=== PATIENT | female | born 1995 | race Hispanic/Latino ===

== ENCOUNTER 2019-02-11 14:20 | Emergency (ER) | payer MEDICAID ==
[2019-02-11 15:38] LABS: APPEARANCE,URINE Cloudy (CLEAR); BILIRUBIN,URINE Negative (NEGATIVE); COLOR,URINE Yellow (YELLOW); GLUCOSE, URINE (UA) Negative (NEGATIVE); KETONES,URINE Trace mg/dL (NEGATIVE); LEUKOCYTE ESTERASE ,URINE Small (NEGATIVE); NITRATE,URINE Negative (NEGATIVE); OCCULT BLOOD,URINE Negative (NEGATIVE); PH,URINE 5.5 (5.0-8.0); PROTEIN,URINE Negative (NEGATIVE)
[2019-02-11 15:45] LABS: BACTERIA,URINE Few /HPF (None Seen); MUCUS,URINE Few LPF (None Seen); RBC,URINE 0-1 /HPF (0-1); SQUAMOUS EPITHELIAL CELL,UR Few /HPF (0-2); TRANSITIONAL EPI CELLS,URINE Few /HPF (None Seen)
[2019-02-11] MEDS ORDERED: SODIUM CHLORIDE 0.9% 1000ML 1,000 ML IV ONE (15:57)
[2019-02-11 16:07] LABS: BASOPHILS % (AUTO) 0.4 % (0.0-5.0); EOSINOPHILS % (AUTO) 1.8 % (0.0-8.0); HEMATOCRIT 39.1 % (36-48); LYMPHOCYTES % (AUTO) 13.9 % (21.0-51.0); MEAN CORPUSCULAR HEMOGLOBIN 29.9 pg (27.0-33.0); MEAN CORPUSCULAR HGB CONC 34.4 g/dL (32.0-36.0); MONOCYTES % (AUTO) 5.8 % (3.0-13.0); NEUTROPHILS % (AUTO) 78.1 % (40.0-77.0); PLATELET COUNT (AUTO) 244 K/uL (130-400); RED BLOOD CELL COUNT(AUTO) 4.49 MIL/uL (4.00-5.50); RED CELL DISTRIBUTION WIDTH 13.4 % (11.0-15.5); WHITE BLOOD COUNT (AUTO) 13.7 K/uL (4.8-10.8)
== END 2019-02-11 17:59 | disposition home or self-care (01) ==
LOC: EDH 14:20
DX: O20.0 Threatened abortion (principal); O21.8 Other vomiting complicating pregnancy; Z3A.10 10 weeks gestation of pregnancy
CPT/HCPCS: 36415; 76801; 81001; 84702; 85025; 96360; 96361; 99285; J7030

== ENCOUNTER 2019-02-23 16:45 | Observation (INO) | payer MEDICAID ==
[~2019-02-23] VITALS: Ht 172.7 cm; Wt 84.4 kg
[2019-02-23 17:15] VITALS: BP 115/53
[2019-02-23] MEDS ORDERED: PROMETHAZINE HCL 25 MG/ML 1ML AMPULE IM PRN (17:15)
[2019-02-23] MEDS ORDERED: PNV1TABL17 PO (17:58)
[2019-02-23 17:59] LABS: HEMATOCRIT 38.6 % (36-48); MEAN CORPUSCULAR HEMOGLOBIN 29.7 pg (27.0-33.0); MEAN CORPUSCULAR HGB CONC 34.9 g/dL (32.0-36.0); PLATELET COUNT (AUTO) 369 K/uL (130-400); RED BLOOD CELL COUNT(AUTO) 4.54 MIL/uL (4.00-5.50); RED CELL DISTRIBUTION WIDTH 12.8 % (11.0-15.5)
[2019-02-23 18:00] LABS: APPEARANCE,URINE Cloudy (CLEAR); BILIRUBIN,URINE Negative (NEGATIVE); COLOR,URINE Yellow (YELLOW); GLUCOSE, URINE (UA) Negative (NEGATIVE); KETONES,URINE Negative (NEGATIVE); LEUKOCYTE ESTERASE ,URINE Trace (NEGATIVE); NITRATE,URINE Negative (NEGATIVE); OCCULT BLOOD,URINE Negative (NEGATIVE); PH,URINE 6.5 (5.0-8.0); PROTEIN,URINE Negative (NEGATIVE); UROBILINOGEN,URINE 0.2 mg/dL (0.2-1.0)
[2019-02-23 18:07] LABS: BACTERIA,URINE Few /HPF (None Seen); RBC,URINE 0-1 /HPF (0-1)
[2019-02-23 18:08] LABS: SQUAMOUS EPITHELIAL CELL,UR Few /HPF (0-2)
[2019-02-23 18:11] LABS: ALBUMIN 3.5 g/dL (3.5-5.0); BILIRUBIN,TOTAL 0.4 mg/dL (0.2-1.0); CREATININE 0.5 mg/dL (0.5-1.5); POTASSIUM 3.5 mmol/L (3.5-5.1); TOTAL PROTEIN, SERUM 7.6 g/dL (6.0-8.3)
[2019-02-23 19:24] VITALS: BP 122/61
[2019-02-23] MEDS: FAMOTIDINE/PF 20 MG/2 ML VIAL IV SCH (21:12)
[2019-02-23 23:45] VITALS: BP 118/58
[2019-02-24] MEDS: LACTATED RINGERS 1000ML 1,000 ML IV SCH ×4 (01:04→16:52)
[2019-02-24 04:38] VITALS: BP 115/64
[2019-02-24 07:25] VITALS: BP 113/62
[2019-02-24] MEDS: FAMOTIDINE/PF 20 MG/2 ML VIAL IV SCH ×2 (08:37→20:35)
[2019-02-24 11:14] VITALS: BP 123/64
--- NOTE | 2019-02-24 13:00 | NUR ---
DIET PT TOLERATED CLEAR LIQUID DIET FOR LUNCH. NO NAUSEA OR VOMITING
[2019-02-24 16:33] VITALS: BP 118/65
[2019-02-24 19:24] VITALS: BP 121/60
[2019-02-24 23:05] VITALS: BP 104/56
[2019-02-25] MEDS: LACTATED RINGERS 1000ML 1,000 ML IV SCH ×3 (01:10→09:04)
[2019-02-25 03:32] VITALS: BP 123/77
[2019-02-25 07:40] VITALS: BP 107/60
[2019-02-25] MEDS: FAMOTIDINE/PF 20 MG/2 ML VIAL IV SCH (08:51)
[2019-02-25] MEDS ORDERED: DiphenhydrAMINE HCL 50 MG/ML VIAL IV SCH (10:15)
[2019-02-25] MEDS ORDERED: CEFTRIAXONE SODIUM 1 GM IVP SCH (10:15)
[2019-02-25 11:47] VITALS: BP 123/61
== END 2019-02-25 13:25 | disposition home or self-care (01) ==
LOC: INTOOBSV 16:45 → WSH 16:45
PROVIDERS: ADMIT Obstetrics & Gynecology; ATTEND Obstetrics & Gynecology
DX: O21.0 Mild hyperemesis gravidarum (principal); O09.891 Supervision of other high risk pregnancies, first trimester; O99.341 Other mental disorders complicating pregnancy, first trimester; F31.9 Bipolar disorder, unspecified; Z79.899 Other long term (current) drug therapy
CPT/HCPCS: 36415; 80053; 81001; 85027; 96361 ×2; 96374; 96375; 96376 ×2; G0378 ×44; J0696; J3490 ×4; J7120 ×3

== ENCOUNTER 2019-08-11 15:54 | Inpatient (IN) | payer MEDICAID ==
[~2019-08-11] VITALS: Ht 172.7 cm; Wt 109.3 kg
[~2019-08-11 15:54] MED LIST: PNV1TABL17 PO
[2019-08-11] MEDS ORDERED: OXYTOCIN-LR 20 UNITS/1000 ML 1,000 ML IV SCH (17:00)
[2019-08-11] MEDS ORDERED: CELESTONE SOLUSPAN 6 MG/ML 5ML VIAL IM SCH (17:00)
[2019-08-11 17:15] LABS: HEMATOCRIT 36.3 % (36-48); MEAN CORPUSCULAR HEMOGLOBIN 25.6 pg (27.0-33.0); PLATELET COUNT (AUTO) 278 K/uL (130-400); RED BLOOD CELL COUNT(AUTO) 4.54 MIL/uL (4.00-5.50); RED CELL DISTRIBUTION WIDTH 13.7 % (11.0-15.5); WHITE BLOOD COUNT (AUTO) 13.1 K/uL (4.8-10.8)
[2019-08-11 19:14] LABS: APPEARANCE,URINE Clear (CLEAR); BILIRUBIN,URINE Negative (NEGATIVE); COLOR,URINE Yellow (YELLOW); GLUCOSE, URINE (UA) Negative (NEGATIVE); KETONES,URINE Negative (NEGATIVE); LEUKOCYTE ESTERASE ,URINE Negative (NEGATIVE); NITRATE,URINE Negative (NEGATIVE); OCCULT BLOOD,URINE Negative (NEGATIVE); PH,URINE 7.5 (5.0-8.0); PROTEIN,URINE Negative (NEGATIVE)
[2019-08-11 19:21] LABS: AMPHET/METH SCREEN,URINE NEGATIVE (NEGATIVE); BARBITURATE SCREEN, URINE NEGATIVE (NEGATIVE); BENZODIAZEPINES SCREEN,URINE NEGATIVE (NEGATIVE); CANNABINOID SCREEN,URINE NEGATIVE (NEGATIVE); COCAINE SCREEN,URINE NEGATIVE (NEGATIVE); OPIATE SCREEN,URINE NEGATIVE (NEGATIVE); PHENCYCLIDINE SCREEN,URINE NEGATIVE (NEGATIVE)
[2019-08-11] MEDS ORDERED: ACETAMINOPHEN EXTRA STRENGTH 500 MG TABLET PO PRN (22:00)
[2019-08-11] MEDS: CLINDAMYCIN 600 MG/D5% WATER 50 ML IV SCH (23:46)
[2019-08-12] MEDS: LACTATED RINGERS 1000ML 1,000 ML IV PRN (00:56)
[2019-08-12] MEDS: CLINDAMYCIN 600 MG/D5% WATER 50 ML IV SCH ×3 (05:45→18:00)
[2019-08-13] MEDS: CLINDAMYCIN 600 MG/D5% WATER 50 ML IV SCH ×4 (00:22→17:49)
[2019-08-13 07:13] LABS: HEPATITIS Bs ANTIGEN SCREEN P Negative (Negative)
[2019-08-13] MEDS: LACTATED RINGERS 1000ML 1,000 ML IV PRN (12:35)
[2019-08-14] MEDS: LACTATED RINGERS 1000ML 1,000 ML IV PRN ×2 (04:59→23:57)
[2019-08-14] MEDS: CLINDAMYCIN 600 MG/D5% WATER 50 ML IV SCH ×5 (05:46→23:56)
[2019-08-14 07:30] LABS: BASOPHILS % (AUTO) 0.2 % (0.0-5.0); EOSINOPHILS % (AUTO) 0.5 % (0.0-8.0); HEMATOCRIT 33.7 % (36-48); LYMPHOCYTES % (AUTO) 20.6 % (21.0-51.0); MEAN CORPUSCULAR HEMOGLOBIN 25.7 pg (27.0-33.0); MEAN CORPUSCULAR HGB CONC 31.5 g/dL (32.0-36.0); MEAN CORPUSCULAR VOLUME 81.8 fL (79-99); MONOCYTES % (AUTO) 8.2 % (3.0-13.0); NEUTROPHILS % (AUTO) 69.2 % (40.0-77.0); PLATELET COUNT (AUTO) 251 K/uL (130-400); RED BLOOD CELL COUNT(AUTO) 4.12 MIL/uL (4.00-5.50); RED CELL DISTRIBUTION WIDTH 14.1 % (11.0-15.5); WHITE BLOOD COUNT (AUTO) 12.5 K/uL (4.8-10.8)
[2019-08-15] MEDS ORDERED: PROMETHAZINE HCL 25 MG/ML 1ML AMPULE IM PRN
[2019-08-15] MEDS ORDERED: MEPERIDINE-PF 50 MG/ML SYG ONE (02:38)
[2019-08-15] MEDS ORDERED: MEPERIDINE-PF 50 MG/ML SYG IVP PRN (02:45)
[2019-08-15] MEDS ORDERED: OXYTOCIN-LR 20 UNITS/1000 ML 1,000 ML IV ONE (03:32)
[2019-08-15] MEDS ORDERED: OXYTOCIN-LR 20 UNITS/1000 ML 1,000 ML IV SCH (03:45)
[2019-08-15] MEDS ORDERED: LIDOCAINE HCL 1% 20 ML VIAL ONE (04:45)
[2019-08-15] MEDS: OXYTOCIN-LR 20 UNITS/1000 ML 1,000 ML IV SCH (04:51)
[2019-08-15] MEDS ORDERED: LANOLIN 30GM OINTMENT TP PRN (05:15)
[2019-08-15] MEDS ORDERED: ACETAMINOPHEN-CODEINE 300/30MG TAB PO PRN (05:15)
[2019-08-15] MEDS ORDERED: MEASLES/MUMPS/RUBELLA VACCINE, LIVE 0.5 ML/VIAL SQ PRN (05:15)
[2019-08-15] MEDS ORDERED: BENZOCAINE/LANOLIN/ALOE VERA 60 ML AEROSOL TP PRN (05:15)
[2019-08-15] MEDS ORDERED: ACETAMINOPHEN 325 MG TAB PO PRN (05:15)
[2019-08-15] MEDS ORDERED: WITCH HAZEL 1 PAD TP PRN (05:15)
[2019-08-15] MEDS ORDERED: DIPH,PERTUSS(ACELL),TET VAC/PF 0.5 ML VIAL IM PRN (05:15)
--- NOTE | 2019-08-15 06:40 | NUR ---
Pitocin 20 units in LR infusing@125ml/hr via pump Addendum: 08/15/19 at 0640 by WALTER IVAN RN RN Amended: Links added.
[2019-08-15 07:17] VITALS: BP 115/55
[2019-08-15] MEDS: DOCUSATE SODIUM 100 MG CAP PO SCH ×2 (08:15→21:14)
[2019-08-15] MEDS: IBUPROFEN 600 MG TABLET PO PRN ×2 (08:16→16:26)
[2019-08-15] MEDS ORDERED: PNV#1CAP5 PO (12:29)
--- NOTE | 2019-08-15 12:30 | NUR ---
DR. CAIN CALLED RE PATIENT STATUS. DR. CAIN WAS MADE AWARE OF PATIENT BEING STABLE AN D BABY BEING A BOARDER BABY. INFORMED DR. CAIN OF PATIENT NOT BEING DISCHARGED UNTIL MAYBE SATURDAY. INDICATED PATIENT OKAY FOR DISCHARGE IF BABY IS DISCHARGED.
[2019-08-15 12:55] VITALS: BP 126/67
[2019-08-15 16:20] VITALS: BP 104/61
--- NOTE | 2019-08-15 17:00 | NUR ---
PATIENT HAD PIV CONVERTED TO SALINE LOCK AND WAS FLUSHED WITH 5CC NS. PATIENT WANTED TO TAKE SHOWER.
--- NOTE | 2019-08-15 19:15 | NUR ---
REPORT GIVEN TO MELITON PEREZ AND PATIENT CARE TRANSFERED AT THIS TIME.
[2019-08-15 19:50] VITALS: BP 93/56
[2019-08-15 23:33] VITALS: BP 110/75
[2019-08-16 03:36] VITALS: BP 120/76
[2019-08-16] MEDS: OXYTOCIN-LR 20 UNITS/1000 ML 1,000 ML IV SCH (05:15)
[2019-08-16] MEDS: CLINDAMYCIN 600 MG/D5% WATER 50 ML IV SCH ×2 (06:00)
[2019-08-16 06:44] LABS: HEMATOCRIT 39.4 % (36-48); MEAN CORPUSCULAR HEMOGLOBIN 25.5 pg (27.0-33.0); MEAN CORPUSCULAR HGB CONC 31.5 g/dL (32.0-36.0); MEAN CORPUSCULAR VOLUME 81.1 fL (79-99); PLATELET COUNT (AUTO) 293 K/uL (130-400); RED BLOOD CELL COUNT(AUTO) 4.86 MIL/uL (4.00-5.50); RED CELL DISTRIBUTION WIDTH 14.3 % (11.0-15.5); WHITE BLOOD COUNT (AUTO) 16.7 K/uL (4.8-10.8)
[2019-08-16 07:22] VITALS: BP 126/63
--- NOTE | 2019-08-16 08:10 | NUR ---
ASSESSEMENT DONE AND PATIENT STATES HAVING PAIN OF 2. WAS MEDICATED WITH MOTRIN FOR MILD PAIN. SALINE LOCK SITE WNL.
[2019-08-16] MEDS: DOCUSATE SODIUM 100 MG CAP PO SCH (08:13)
[2019-08-16] MEDS: IBUPROFEN 600 MG TABLET PO PRN (08:14)
[2019-08-16 10:57] VITALS: BP 113/58
--- NOTE | 2019-08-16 12:00 | NUR ---
DR. DEVONTE CAIN ROUNDED AND DISCHARGED PATIENT TO HOME. PATIENT VERBALIZED BABY WILL BE STAYING FOR A FEW MORE DAYS.
--- NOTE | 2019-08-16 15:00 | NUR ---
PATIENT WENT TO N TO VISIT WITH BABY.
--- NOTE | 2019-08-16 16:00 | NUR ---
PATIENT WAS GIVEN DISCHARGE INSTRUCTIONS AND INSTRUCTED PATIENT TO TAKEN MOTRIN OVER THE COUNTER NEEDED FOR PAIN. PATIENT DISCHARGE INSTRUCTIONS GIVEN TO PATIENT AND INSTRUCTED TO TAKE MOTRIN OVER THE COUNTER NEEDED FOR PAIN. VERBALIZED UNDERSTANDING INSTRUCTIONS GIVEN. SALINE LOCK REMOVED FOR DISCHARGE.
[2019-08-16 16:03] VITALS: BP 126/76
--- NOTE | 2019-08-16 16:30 | NUR ---
PATIENT WAS TAKEN VIA W/C TO FAMILY VEHICLE AND WAS DISCHARGED TO HER SIGNIFICANT OTHER IN STABLE CONDITION. WAS NOT DISCHARGED AT THIS TIME.
== END 2019-08-16 16:30 | disposition home or self-care (01) | DRG 560 ==
LOC: EDH 15:54 → LDH 15:55 → OBSVTOIN 15:55 → WSH 08-15 07:02
PROC: 10E0XZZ Delivery of Products of Conception, External Approach (ICD-10-PCS; principal; 2019-08-15)
PROC: 0UQGXZZ Repair Vagina, External Approach (ICD-10-PCS; 2019-08-15)
PROC: 3E0234Z Introduction of Serum, Toxoid and Vaccine into Muscle, Percutaneous Approach (ICD-10-PCS; 2019-08-15)
PROC: 3E0134Z Introduction of Serum, Toxoid and Vaccine into Subcutaneous Tissue, Percutaneous Approach (ICD-10-PCS; 2019-08-15)
DX: O42.913 Preterm premature rupture of membranes, unspecified as to length of time between rupture and onset of labor, third trimester (principal); Z37.0 Single live birth; O71.4 Obstetric high vaginal laceration alone; O69.81X0 Labor and delivery complicated by cord around neck, without compression, not applicable or unspecified; Z3A.34 34 weeks gestation of pregnancy; Z23 Encounter for immunization
CPT/HCPCS: 36415; 76805; 76815; 80305; 81003; 85025; 85027; 86592; 86850; 86900; 86901; 87340; 87802; A4351; G0378; J0702; J2175; J2550; J2590; J3490; J7120